=== PATIENT | male | born 1990 | race Caucasian/White ===

== ENCOUNTER 2016-07-20 11:50 | Emergency (ER) | payer SELFPAY ==
[~2016-07-20] VITALS: Ht 172.7 cm; Wt 70.0 kg
[~2016-07-20 11:50] MED LIST: AMOX875 PO; CIPR0.3S RIGHT EAR
[2016-07-20 11:51] VITALS: BP 132/75; PULSE 61; RESP 15; TEMP 98.1; O2SAT 99
[2016-07-20] MEDS ORDERED: DOXY100C PO (12:30)
--- NOTE | 2016-07-20 12:31 | PD ---
HPI Chief Complaint: Skin Problem Time Seen by Provider: 12:20 Travel History International Travel<30 days: No Contact w/Intl Traveler<30days: No Traveled to known affect area: No History of Present Illness HPI Patient is a 25-year-old male who presented to emergency department for evaluation of a skin lesion to his left upper thigh area patient states he thinks he was bit by a spider 3 days ago. Since that time he's had redness, warmth, and swelling. He reports expressing pus from it yesterday. He denies any fevers or chills but reported a dull headache after he express pus from the wound. He states that the redness has gotten larger despite draining it. He denies any muscle aches, vomiting, headache. Patient further denies doing any landscaping or yard work or hiking or being outdoors recently PFS Past Medical History Medical History: Denies Significant Hx Hx Anticoagulant Therapy: No Cardiovascular Problems: No Chemotherapy: No Cerebrovascular Accident: No Diabetes: No Respiratory: No Social History Alcohol Use: No Tobacco Use: No Substance Use: Yes (marijuana) Allergies-Medications (Allergen,Severity, Reaction): Coded Allergies: No Known Allergies (Unverified , 07/20/16) Reported Meds & Prescriptions Reported Meds & Active Scripts Active Review of Systems Musculoskeletal: Positive: Myalgias Skin: Positive Rash, Positive Change in Pigmentation, Positive Lesions Physical Exam Narrative GENERAL: Well-nourished, well-developed patient. SKIN: Warm and dry. Left inner upper thigh with a 3 inch area of erythema in a bull's-eye pattern with a mildly pink outer band by clear skin with the darkened erythema in the center. Area is nonfluctuant. It is warm to the touch. There is a central lesion noted as well with no drainage. HEAD: Normocephalic. EYES: No scleral icterus. No injection or drainage. NECK: Supple, trachea midline. No JVD or lymphadenopathy. CARDIOVASCULAR: Regular rate and rhythm without murmurs, gallops, or rubs. RESPIRATORY: Breath sounds equal bilaterally. No accessory muscle use. GASTROINTESTINAL: Abdomen soft, non-tender, nondistended. MUSCULOSKELETAL: No cyanosis, or edema. BACK: Nontender without obvious deformity. No CVA tenderness. Data Data Last Documented VS Vital Signs Date Time Temp Pulse Resp B/P Pulse Ox O2 Delivery O2 Flow Rate FiO2 1/30/17 11:51 98.1 61 15 132/75 99 [facility] Medical Decision Making Medical Screen Exam Complete: Yes Emergency Medical Condition: Yes Interpretation(s) Vital Signs Date Time Temp Pulse Resp B/P Pulse Ox O2 Delivery O2 Flow Rate FiO2 07/20/16 11:51 98.1 61 15 132/75 99 Differential Diagnosis Cellulitis versus abscess versus erythema migrans versus other Narrative Course Patient is a 25-year-old male who presents emergency for evaluation of 3 days of a skin lesion to his left upper inner thigh. Physical presentation appears consistent with erythema migrans although patient denies any tick bites or being out of doors. Patient will be treated empirically with doxycycline. Per up-to-date recommendations treatment is for 10-21 days. Patient will be provided with a prescription for this. He is advised to return to emergency department immediately for any new or worsening symptoms. He was also encouraged to return to emergency department if he notices a fluctuance to the area which would require an I&D at that time. Currently the area is firm and has spontaneously drained on its own. Patient is encouraged to follow-up with his primary doctor as well. Patient verbalizes understanding of these instructions. Patient is stable for discharge. Diagnosis Primary Impression: Erythema migrans (Lyme disease) Additional Impression: Cellulitis Qualified Code: L03.116 - Cellulitis of left lower extremity Referrals: Primary Care Physician Patient Instructions: General Instructions Additional Instructions: Return to emergency department immediately for any new or worsening symptoms Take medications as directed Follow-up with your primary doctor Complete full course of antibiotics as prescribed Med/Other Pt SpecificInfo: Prescription(s) given Scripts Doxycycline Hyclate 100 Mg [id number] Mg PO BID 21 Days Ref 0 Prov:Radha Mathur 07/20/16 Disposition: 01 DISCHARGE HOME Condition: Stable Radha Mathur Jul 20, 2016 12:31
== END 2016-07-20 12:57 | disposition home or self-care (01) ==
LOC: NEPB 11:50
DX: A69.20 Lyme disease, unspecified (principal)
CPT/HCPCS: 99283